=== PATIENT | female | born 1940 | race Caucasian/White ===

== ENCOUNTER → 2017-05-28 | Day surgery (SDC) | payer MEDICARE ==
[~2017-05-28] VITALS: Ht 160 cm; Wt 61.5 kg
[~2017-05-28] MED LIST: CHLORHEXIDINE GLUCONATE 2 % 1 PACK (2 CLOTHS) TOPICAL PRN; FAMOTIDINE 20 MG/2 ML VIAL ONE; IBUP1TAB5 PO; INSULIN HUMAN REGULAR 1,000 UNITS/10 ML VIAL SQ PRN; LACTATED RINGER'S 1000 ML IV PRN; LEXA10TA PO; LIDOCAINE 1%/EPINEPHrine 1:100,000 SOLN 20 ML VIAL ONE; LORA-392 PO; MAPA500T13 PO; METOPROLOL TARTRATE 25 MG TAB PO PRN; MIDAZOLAM HCL 2 MG/2 ML VIAL ONE; OMEG100046 PO; POVIDONE IODINE 5% (ANTISEPSIS KIT) 4 APPLICATIONS EACH NARE PRN; SODIUM CHLORID 0.9% 500 ML IV PRN; VITA200C3 PO; VITA250C3 CHEW; ceFAZolin 2 GM PREMIX 50 ML IV SCH
[2017-05-28] MEDS: BACITRACIN TOP OINT 15 GM TUBE ONE ×2 (12:00→12:23)
[2017-05-28 12:40] VITALS: TEMP 97.8
--- NOTE | 2017-05-28 12:56 | MP ---
cc: GAETANO MOSER M.D. DATE OF SURGERY: 05/28/2017 PREOPERATIVE DIAGNOSIS Basal cell carcinoma right restoration. POSTOPERATIVE DIAGNOSIS Basal cell carcinoma right restoration. OPERATION Excision frozen section right restoration basal cell carcinoma 5 x 3 cm, full-thickness skin graft from the right neck. SURGEON Dr. Moser. ANESTHESIA General. INDICATIONS 77-year-old white female with biopsy-proven basal cell carcinoma, somewhat broad area on the right restoration and hairline. The patient underwent explanation of the excision frozen section to get clear margins and reconstruction either with a full-thickness skin graft or a local rotation flap. She is comfortable going ahead with the skin graft, understands that the graft may possibly have a partial or complete loss and a future surgery may be needed. PROCEDURE The patient was brought to the operating room, was given supine position. Anesthesia was started. Prep and drape was done. IV antibiotic had been given. Time-out was called and completed. The preoperative markings were reinforced. The area was injected with lidocaine 1% with epi and sodium bicarb. Specimen was excised in subcutaneous levels, suture marked superior sent for frozen section. Hemostasis was completed. A full-thickness slightly oversized graft was harvested from the left posterior hairline taking some partly hair bearing skin to replace the lost restoration hair. The graft was inset, the frozen section received in the meantime indicated clear margins and basal cell and possibly some squamous cell as well. The donor site was closed with Vicryl sutures as well. Sterile dressing was applied. The intraoperative blood loss was less than 5 ccs. No complications. MD MATHEW Gardner/GLORIA /12:31 PM /12:55 PM
[2017-05-28 13:30] VITALS: BP 108/62; PULSE 62; RESP 15; O2SAT 100
== END | disposition home or self-care (01) ==
LOC: PHSDC 07:40
PROVIDERS: ATTEND Plastic Surgery
DX: C44.319 Basal cell carcinoma of skin of other parts of face (principal); E11.65 Type 2 diabetes mellitus with hyperglycemia; I10 Essential (primary) hypertension; E78.5 Hyperlipidemia, unspecified; E53.8 Deficiency of other specified B group vitamins; I69.90 Unspecified sequelae of unspecified cerebrovascular disease; M17.10 Unilateral primary osteoarthritis, unspecified knee; H61.20 Impacted cerumen, unspecified ear; M62.81 Muscle weakness (generalized); R00.1 Bradycardia, unspecified; E55.9 Vitamin D deficiency, unspecified; H53.462 Homonymous bilateral field defects, left side
CPT/HCPCS: 00300; 11646; 15240; 88305; 88331; J0690; J2250; J7120